=== PATIENT | male | born 1965 | race Caucasian/White ===

== ENCOUNTER 2019-05-30 10:48 | Emergency (ER) | payer OTHER, SELFPAY ==
--- NOTE | ~2019-05-30 | XR_ITS ---
XR elbow LT min 3V DATE: 05/30/2019 11:30 INDICATION: Injury one month ago. Acute redness and swelling. TECHNIQUE: 4 views COMPARISON: None FINDINGS: There is soft tissue swelling of the dorsum of the left elbow. No fracture or dislocation or joint effusion is evident. No periosteal reaction or bone destruction. There is a small radiopaque foreign body in the proximal dorsal medial aspect of the forearm. IMPRESSION: Mild dorsal soft tissue swelling, suggesting possible olecranon bursitis Reviewed, dictated and finalized at location B. NG COOKER IMPRESSION: Mild dorsal soft tissue swelling, suggesting possible olecranon bur sitis
--- NOTE | 2019-05-30 10:55 | ED.GENADULT ---
HPI - General Adult General Chief complaint: Extremity Injury, Upper Stated complaint: left elbow swelling Time Seen by Provider: 05/30/19 11:21 Source: patient Mode of arrival: ambulatory Limitations: no limitations History of Present Illness HPI narrative: 54-year-old male presents to the [facility] with complaints of left elbow swelling and pain. Patient states that he fell in hit his elbow about a month ago and states that it has gotten worse last couple of days with redness, swelling. Patient states it is painful when he tries to bend the elbow. Patient denies any temperatures that he is aware of. Patient states that he has been feeling just kind of woozy and just not feeling good overall that started yesterday. Patient denies history of diabetes but is an active smoker. Related Data Home Medications Medication Instructions Recorded Confirmed No Home Medications 05/30/19 05/30/19 Allergies Allergy/AdvReac Type Severity Reaction Status Date / Time latex Allergy Swelling Verified 05/30/19 11:13 Review of Systems Review of Systems: Narrative: CONSTITUTIONAL: Denies fever, chills, or sweats. EYES: Denies visual changes, redness, or discharge. ENT: Denies rhinorrhea, congestion, sore throat, or otalgia. CARDIOVASCULAR: Denies chest pain, palpitations, or edema. RESPIRATORY: Denies cough or dyspnea. GASTROINTESTINAL: Denies abdominal pain, nausea, vomiting, or diarrhea. GENITOURINARY: Denies dysuria or hematuria. SKIN: Denies rash or itching. MUSCULOSKELETAL: Denies back pain, joint pain, or myalgia. Positive left elbow pain, redness and swelling NEUROLOGIC: Denies headache, numbness, or weakness. PSYCHIATRIC: Denies anxiety or depression. PMFSH Comments At the time of my signature I agree with nursing past medical history, surgical, social, and family history. There is no relevant family history pertinent to the presenting complaint. Exam Narrative: Exam Narrative: GENERAL: Well-appearing, well-nourished, and in no acute distress. HEAD: Normocephalic, atraumatic. EYES: PERRLA and EOMI. ENT: Nares clear, no rhinorrhea or epistaxis. Mucous membranes moist. NECK: Supple. No lymphadenopathy CHEST: Clear to auscultation. No respiratory distress. HEART: Regular rate and rhythm. No murmur heard. Normal peripheral pulses. ABDOMEN: Soft, nontender, nondistended, normal active bowel sounds. EXTREMITIES: The L elbow is without obvious asymmetry or deformity when compared to the R elbow. Patient has swelling, redness noted to the left elbow. There is some warmth noted on the touch. No bony tenderness to palpation of the lateral or medial epicondyle, olecranon, or radial head. No epicondylar or axillary lymphadenopathy. Pain with flexion and extension, normal supination, pronation. Decreased muscle strength. Intact motor and sensation of ulnar, median, and radial nerves. SKIN: Warm, dry, no rash. NEURO: No focal deficits. Alert and oriented x3. Course Reevaluation(s) Reevaluation #1: Notify patient that there is notable foreign body in the x-ray and given the fact that he did injure this a month ago is presenting today with pain with movement along with swelling, redness and an obvious infection I think we need to send him over to the ER for further evaluation and treatment. Patient and are aware the plan of care and requesting to be sent to [facility] ER. Date: 05/30/19 Time: 11:40 Vital Signs Vital signs: Vital Signs Temperature 36.6 C 05/30/19 10:58 Pulse Rate 83 05/30/19 10:58 Respiratory Rate 16 05/30/19 10:58 Blood Pressure 156/76 H 05/30/19 10:58 Pulse Oximetry 100 05/30/19 10:58 Temperature 36.6 C 05/30/19 10:58 Pulse Rate 83 05/30/19 10:58 Respiratory Rate 16 05/30/19 10:58 Blood Pressure 156/76 H 05/30/19 10:58 Pulse Oximetry 100 05/30/19 10:58 Vital signs reviewed. The patient has been informed that they may have pre-hypertension or Hypertension based on a BP readi
[2019-05-30 10:58] VITALS: BP 156/76; PULSE 83; RESP 16; TEMP 36.6; O2SAT 100
== END 2019-05-30 11:45 | disposition short-term general hospital (02) ==
PROVIDERS: Emergency Provider Nurse Practitioner Family; PCP Family Medicine
DX: M70.32 Other bursitis of elbow, left elbow (principal); S51.842A Puncture wound with foreign body of left forearm, initial encounter; F17.200 Nicotine dependence, unspecified, uncomplicated
CPT/HCPCS: 73080; 99213; G0463

== ENCOUNTER 2021-08-17 14:46 | Emergency (ER) | payer OTHER, SELFPAY ==
--- NOTE | 2021-08-17 14:55 | ED.EYEPROB ---
HPI - Eye Problem General Chief complaint: Eye Problems Stated complaint: eye pain Time Seen by Provider: 08/17/21 14:56 Source: patient and RN notes reviewed Mode of arrival: ambulatory Limitations: no limitations History of Present Illness chief complaint: eye pain and eye redness Onset (ago): day(s) (1) Onset description: sudden Duration: constant and other ( There was nothing makes it better, opening his eye bright light makes it worse) Location: right eye Eye Symptoms: burning and redness Place: home Mechanism: none Severity: moderate If Pain, Quality: burning Associated symptoms: none Treatments Prior to Arrival: none Related Data Patient tetanus UTD: Yes Home Medications Medication Instructions Recorded Confirmed atorvastatin 10 mg PO DAILY 08/17/21 08/17/21 sertraline 50 mg PO DAILY 08/17/21 08/17/21 Allergies Allergy/AdvReac Type Severity Reaction Status Date / Time latex Allergy Swelling Verified 08/17/21 15:06 Review of Systems Review of Systems: All systems reviewed & are unremarkable except as noted in HPI and below PMFSH Past Medical History Medical History (Updated 08/17/21 @ 15:10 by Miguelito Jeffries MD) Anxiety Hyperlipidemia Surgical History Surgical History (Updated 08/17/21 @ 14:57 by Miguelito Jeffries MD) H/O repair of rotator cuff bilateral History of carpal tunnel release bilateral Social History Social History (Updated 08/17/21 @ 14:55 by Miguelito Jeffries MD) Smoking packs per day: 1 Smoking cigarettes per day: 20.0 Smoking status: Current every day smoker Tobacco type: cigarettes Exam Const: General: healthy appearing, no acute distress and alert Nutritional Appearance: well nourished Orientation/consciousness: patient oriented x3 HENMT: Head: normal to inspection Ears: external ears normal Mouth: Yes moist mucous membranes Eyes: Periorbital: periorbital findings normal Eyelids: eyelids normal Sclera: scleral abnormality right scleral injection Cornea: corneas abnormal on the right fluorescein used and abrasion linear and at the following clock position (6); with no foreign body noted EOM: EOMs intact bilaterally Direct Ophthalmoscopy: normal light reflex and no photophobia Neck: Neck: normal visual inspection Resp: Effort & Inspection: normal respiratory effort Auscultation: clear to auscultation bilaterally Cardio: Rate: regular rate Rhythm: regular rhythm GI: GI Palp: Yes Soft to palpation and No Tenderness to palpation present (GI) Auscultation: normal bowel sounds Back/Spine/Pelvis: Cervical Spine: cervical ROM normal Thoracic/Lumbar Spine: thoraco-lumbar ROM normal Skin: General skin exam: normal color Rashes: no rashes Neuro: General: patient oriented x3, moves all extremities, no meningeal signs, no focal motor deficits and CN's II-XI intact bilaterally Speech: normal speech Gait exam (Neuro): Normal gait present Extrem: General: normal to inspection and no clubbing, cyanosis or edema Psych: Appearance: grossly normal and well kempt Mental Status: mental status grossly normal Affect: normal affect Attitude: cooperative Thought content: Yes Normal thought content present Course Vital Signs Vital signs: Vital Signs Temperature 36.4 C L 08/17/21 14:58 Pulse Rate 89 08/17/21 14:58 Respiratory Rate 16 08/17/21 14:58 Blood Pressure 159/92 H 08/17/21 14:58 Pulse Oximetry 96 08/17/21 14:58 Temperature 36.4 C 08/17/21 15:12 Pulse Rate 89 08/17/21 15:12 Respiratory Rate 16 08/17/21 15:12 Blood Pressure 159/92 H 08/17/21 15:12 Pulse Oximetry 96 08/17/21 15:12 Discharge Plan Discharge Clinical Impression: Corneal abrasion Qualifiers: Encounter type: initial encounter Laterality: right Qualified Code(s): S05.01XA - Injury of conjunctiva and corneal abrasion without foreign body, right eye, initial encounter Patient Disposition: Home, Self-Care Condition: Stable Instructions: C
[2021-08-17 14:58] VITALS: BP 159/92; PULSE 89; RESP 16; TEMP 36.4; O2SAT 96
[2021-08-17] MEDS: DACRIOSE EYE IRRIGATION 118 ML BOTTLE 20 ML RIGHT EYE (15:04)
[2021-08-17] MEDS: TETRACAINE HCL 0.5% OPHTH SOLN 4 ML BTL 1 DROP RIGHT EYE (15:05)
[2021-08-17] MEDS: FLUORESCEIN SOD 1 MG/STRIP (15:06)
[2021-08-17 15:12] VITALS: BP 159/92; PULSE 89; RESP 16; TEMP 36.4; O2SAT 96
== END 2021-08-17 15:17 | disposition home or self-care (01) ==
PROVIDERS: Emergency Provider Emergency Medicine; PCP Family Medicine
DX: S05.01XA Injury of conjunctiva and corneal abrasion without foreign body, right eye, initial encounter (principal)
CPT/HCPCS: 99283; A9270